=== PATIENT | female | born 1940 ===

== ENCOUNTER 2022-06-21 12:16 | Outpatient (REF) | payer MEDICARE, MEDICAID, SELFPAY ==
--- OUTSIDE RECORDS SUMMARY | 2022-06-21 12:18 | XMS_ITS | Continuity of Care Document ---
Author Name Unknown Organization [facility] Address [address] [place] [address] Encounter [facility] Date(s): 06/15/22 - 06/15/22 [facility] [address] [place] [address] [place] Discharge Disposition: Home or Self Care Attending Physician: Hanna Ayala COMPENSATION AND BENEFITS ADVISOR Admitting Physician: Hanna Ayala COMPENSATION AND BENEFITS ADVISOR Assessment and Plan Diagnostic Tests Pending * Urine Culture 06/15/22 Results Laboratory List Name Date Urinalysis Microscopic 06/15/22 Urinalysis with Microscopic 06/15/22 Most recent to oldest [Reference Range]: 1 UA Color Yellow (06/15/22 1:12 PM) UA WBC [0-3] 5-10 *ABN* (06/15/22 1:12 PM) UA Urobilinogen Normal (06/15/22 1:12 PM) UA Bili [Negative] Negative (06/15/22 1:12 PM) UA Ketones Negative (06/15/22 1:12 PM) UA RBC [0-2] 0-2 (06/15/22 1:12 PM) UA Leuk Est 2+ *ABN* (06/15/22 1:12 PM) UA Nitrite Negative (06/15/22 1:12 PM) UA Glucose [Negative] Negative (06/15/22 1:12 PM) UA Bacteria Rare /HPF (06/15/22 1:12 PM) UA Protein Negative (06/15/22 1:12 PM) UA Blood 2+ *ABN* (06/15/22 1:12 PM) UA Mucous Rare /HPF *ABN* (06/15/22 1:12 PM) UA Spec Grav <=1.005 *NA* (06/15/22 1:12 PM) UA Squam Epithelial [None Seen] None See n (06/15/22 1:12 PM) UA pH 5.5 *NA* (06/15/22 1:12 PM) UA Appear Clear (06/15/22 1:12 PM) UA Culture Ind?. Not Applicable (06/15/22 1:12 PM) Social History Social History Type Response Sex Female
[2022-06-21 19:50] LABS: Vitamin D 25 Total 27.6 ng/mL (30-100)
== END 2022-06-21 12:17 | disposition home or self-care (01) ==
LOC: NCHCN 12:16
PROVIDERS: PCP Nurse Practitioner Family; Visit Provider Nurse Practitioner Family
DX: E55.9 Vitamin D deficiency, unspecified (principal)
CPT/HCPCS: 82306

== ENCOUNTER 2022-09-01 15:39 | Outpatient (REF) | payer MEDICARE, MEDICAID, SELFPAY ==
[2022-09-01 19:18] LABS: Troponin I < 50 ng/L (<or=60)
== END 2022-09-01 15:40 | disposition home or self-care (01) ==
LOC: NCHCN 15:39
PROVIDERS: PCP Nurse Practitioner Family; Visit Provider Nurse Practitioner Family
DX: M79.602 Pain in left arm (principal)
CPT/HCPCS: 84484

== ENCOUNTER 2023-01-02 11:52 | Outpatient (REF) | payer MEDICARE, MEDICAID, SELFPAY ==
[2023-01-02 20:50] LABS: Hemoglobin A1C 5.5 % (<5.7)
[2023-01-02 21:02] LABS: Anion Gap 8.1 mmol/L (3-11); BUN 13 mg/dL (7-18); CO2 27.9 mmol/L (21.0-32.0); CREATININE 0.7 mg/dL (0.55-1.02); Calcium 9.5 mg/dL (8.5-10.1); Chloride 103 mmol/L (98-107); Estimated GFR 86.83 (mL/min/1.73m2); Glucose 94 mg/dL (74-106); NT-proBNP 178 pg/mL (<300); Potassium 5.1 mmol/L (3.5-5.1); Sodium 139 mmol/L (136-145)
== END 2023-01-02 11:53 | disposition home or self-care (01) ==
LOC: NCHCN 11:52
PROVIDERS: PCP Nurse Practitioner Family; Visit Provider Nurse Practitioner Family
DX: R63.5 Abnormal weight gain (principal); R60.0 Localized edema
CPT/HCPCS: 80048; 83036; 83880

== ENCOUNTER 2023-01-18 15:36 | Outpatient (REF) | payer MEDICARE, MEDICAID, SELFPAY ==
[2023-01-18 21:02] LABS: BUN 15 mg/dL (7-18); CREATININE 0.6 mg/dL (0.55-1.02); Calcium 9.3 mg/dL (8.5-10.1); Chloride 104 mmol/L (98-107); Estimated GFR 90.12 (mL/min/1.73m2); Glucose 90 mg/dL (74-106); Potassium 4.3 mmol/L (3.5-5.1); Sodium 138 mmol/L (136-145)
== END 2023-01-18 15:37 | disposition home or self-care (01) ==
LOC: NCHCN 15:36
PROVIDERS: PCP Nurse Practitioner Family; Visit Provider Nurse Practitioner Family
DX: R60.0 Localized edema (principal)
CPT/HCPCS: 80048

== ENCOUNTER 2023-03-08 12:44 | Outpatient (REF) | payer MEDICARE, MEDICAID, SELFPAY ==
[2023-03-08 21:05] LABS: Anion Gap 6.2 mmol/L (3-11); BUN 19 mg/dL (7-18); CO2 28.8 mmol/L (21.0-32.0); CREATININE 0.7 mg/dL (0.55-1.02); Chloride 102 mmol/L (98-107); Estimated GFR 86.83 (mL/min/1.73m2); FREE T4 1.01 ng/dL (0.76-1.46); Glucose 96 mg/dL (74-106); Potassium 4.9 mmol/L (3.5-5.1); Sodium 137 mmol/L (136-145); TSH 2.15 uIU/mL (0.36-3.74)
== END 2023-03-08 12:45 | disposition home or self-care (01) ==
LOC: NCHCN 12:44
PROVIDERS: PCP Nurse Practitioner Family; Visit Provider Nurse Practitioner Family
DX: R60.0 Localized edema (principal)
CPT/HCPCS: 80048; 84439; 84443

== ENCOUNTER 2023-11-29 09:47 | Outpatient (REF) | payer MEDICARE, MEDICAID, SELFPAY ==
[2023-11-29 20:47] LABS: ALT 21 U/L (14-59); AST 24 U/L (15-37); Albumin 3.4 g/dL (3.4-5.0); Alkaline Phosphatase 99 U/L (46-116); Anion Gap 7.3 mmol/L (3-11); BUN 19 mg/dL (7-18); Bilirubin, Total 0.48 mg/dL (0.2-1.0); CO2 32.7 mmol/L (21.0-32.0); CREATININE 0.7 mg/dL (0.55-1.02); Calcium 9.5 mg/dL (8.5-10.1); Chloride 102 mmol/L (98-107); Glucose 94 mg/dL (74-106); Potassium 3.6 mmol/L (3.5-5.1); Sodium 142 mmol/L (136-145); Total Protein 7.3 g/dL (6.4-8.2)
== END 2023-11-29 09:48 | disposition home or self-care (01) ==
LOC: NCHCN 09:47
PROVIDERS: PCP Nurse Practitioner Family; Visit Provider Nurse Practitioner Family
DX: I50.30 Unspecified diastolic (congestive) heart failure (principal)
CPT/HCPCS: 80053

== ENCOUNTER 2023-12-29 13:58 | Outpatient (CLI) | payer MEDICARE, MEDICAID, SELFPAY ==
--- NOTE | 2023-12-29 13:45 | RT.EKG_ITS ---
APPROVED REPORT Exam: Resting ECG Reason for Exam: pre op clearance Patient Location: O HR:68 bpm ECG Measurements Heart Rate 68 AXIS OR 245 P 7 QRSd 125 QRS -47 QT 433 T 67 QTc 461 Conclusion Sinus rhythm...normal P axis, V-rate 50- 99 Prolonged OR interval...OR >220, V-rate 50- 90 RBBB and LAFB...QRSd >120mS, axis(-40,240) Baseline wander in lead(s) V5
== END 2023-12-29 13:59 | disposition home or self-care (01) ==
LOC: DI.CARD 13:59
PROVIDERS: PCP Nurse Practitioner Family; Visit Provider Internal Medicine Cardiovascular Disease
DX: I50.30 Unspecified diastolic (congestive) heart failure (principal); Z98.890 Other specified postprocedural states
CPT/HCPCS: 93010

== ENCOUNTER → 2023-12-29 13:59 | Outpatient (BNVA) | payer MEDICARE, MEDICAID, SELFPAY | PROVIDERS: PCP Nurse Practitioner Family; Referring Provider Nurse Practitioner Family; Visit Provider Internal Medicine Cardiovascular Disease | DX: Z01.810 Encounter for preprocedural cardiovascular examination (principal); I50.32 Chronic diastolic (congestive) heart failure | CPT/HCPCS: 99203 ==